=== PATIENT | female | born 1980 | race Caucasian/White ===

== ENCOUNTER → 2016-12-08 | Outpatient (CLI) | payer BC ==
[~2016-12-08] MED LIST: DOCU-129 PO; FOLI-40 PO; PREN-92 PO
[2016-12-08 10:10] LABS: HCT - HEMATOCRIT 37.1 % (36-46); HGB - HEMOGLOBIN 11.9 GM/DL (12-16); MEAN CORPUSCULAR HGB 27.7 UUG (26-34); MEAN CORPUSCULAR HGB CONC(MCHC 32.1 GM/DL (31-37); MEAN CORPUSCULAR VOLUME 86.3 UM3 (80-100); MEAN PLATELET VOLUME 9.4 UM3 (9.4-12.4); WBC - WHITE BLOOD COUNT 3.2 T/MM3 (4.5-11.0)
[2016-12-08 10:39] LABS: BAND NEUTROPHILS # 0.1 T/MM3; EOSINOPHILS # (MANUAL) 0.1 T/MM3 (0-0.5); LYMPHOCYTES # (MANUAL) 0.7 T/MM3 (1-4.8); MONOCYTES # (MANUAL) 0.1 T/MM3 (0-0.8); NEUTROPHILS #(MANUAL)-ABSOLUTE 2.3 T/MM3 (1.8-7.7); TOTAL CELLS COUNTED 100 %
== END ==
LOC: LAB 09:52
PROVIDERS: ATTEND Internal Medicine Hematology & Oncology
DX: D72.819 Decreased white blood cell count, unspecified (principal)
CPT/HCPCS: 36415; 85007; 85027